=== PATIENT | male | born 1965 | race African-American/Black ===

== ENCOUNTER 2024-04-20 16:05 | Emergency (ER) | payer MEDICAID ==
[~2024-04-20] VITALS: Ht 182.9 cm; Wt 99.7 kg
[~2024-04-20 16:05] MED LIST: ASPI-1406 PO; LOSA50TA41 PO
[2024-04-20 16:15] VITALS: O2SAT 100
[2024-04-20 17:15] LABS: BASOPHILS % 1.2 % (0.0-2.0); EOSINOPHILS % 4.3 % (0.0-5.0); HEMATOCRIT. 42.2 % (42.0-52.0); HEMOGLOBIN. 13.8 g/dL (14.0-18.0); LYMPHOCYTES % 36.2 % (20.0-50.0); MEAN CORPUSCULAR HGB CONC 32.8 g/dL (31.0-37.0); MEAN CORPUSCULAR VOLUME 91.6 fL (80.0-94.0); MEAN PLATELET VOLUME 8.7 fl (7.4-10.4); MONOCYTES % 11.2 % (2.0-8.0); NEUTROPHILS % 47.1 % (40.0-76.0); PLATELET 259 x1000/uL (130-400); RED BLOOD CELL COUNT 4.61 mill/uL (4.7-6.1); RED CELL DISTRIBUTION WIDTH 15.2 % (11.6-14.6); WHITE BLOOD COUNT 5.2 x1000/uL (4.5-11.0)
[2024-04-20 17:18] LABS: CHLORIDE 109 mEq/L (98-107); POTASSIUM 4.4 mEq/L (3.5-5.1); SODIUM 145 mEq/L (136-145)
[2024-04-20 17:19] LABS: CALCIUM 9.6 mg/dL (8.7-10.4); CARBON DIOXIDE 32 mEq/L (21-32)
[2024-04-20 17:23] LABS: CREATININE 0.9 mg/dL (0.6-1.3); GLUCOSE 114 mg/dL (70-105)
[2024-04-20 17:24] LABS: UREA NITROGEN BLOOD 7 mg/dL (9-23)
[2024-04-20 17:26] LABS: TROPONIN I HIGH SENSITIVITY 5 ng/L (3.0-53)
[2024-04-20 19:57] LABS: TROPONIN I HIGH SENSITIVITY 5 ng/L (3.0-53)
[2024-04-21 06:39] VITALS: BP 142/88; PULSE 69; RESP 18; TEMP 37.05852; O2SAT 100
[2024-04-21] MEDS ORDERED: TOPUD PO (08:39)
== END 2024-04-21 09:09 | disposition home or self-care (01) ==
LOC: ER 16:05
DX: R07.89 Other chest pain (principal); F17.200 Nicotine dependence, unspecified, uncomplicated; Z59.00 Homelessness unspecified; Z79.899 Other long term (current) drug therapy
CPT/HCPCS: 80048; 85025; 84484; 36415; 71045; 93005; 99285; Z7610 ×2

== ENCOUNTER 2025-01-07 18:17 | Emergency (ER) | payer MEDICAID ==
[~2025-01-07] VITALS: Ht 177.8 cm; Wt 100.0 kg
[~2025-01-07 18:17] MED LIST changes: +ATOR20TA PO; +DOCU-422 PO; +EMPA10TA PO; +FURO-151 MT; +HYDR50TA PO; +METF-414 MT; +METO-539 PO; +SPIR25TA PO; +TOPUD PO
[2025-01-07 18:21] VITALS: O2SAT 100
[2025-01-07 19:17] LABS: HEMATOCRIT. 43.0 % (42.0-52.0); HEMOGLOBIN. 14.4 g/dL (14.0-18.0); MEAN PLATELET VOLUME 8.4 fl (7.4-10.4); PLATELET 202 x1000/uL (130-400); RED BLOOD CELL COUNT 4.66 mill/uL (4.7-6.1); RED CELL DISTRIBUTION WIDTH 13.8 % (11.6-14.6)
[2025-01-07] MEDS ORDERED: IBUP-2028 MT (19:37)
[2025-01-07 19:38] LABS: CREATININE 1.0 mg/dL (0.6-1.3); ETHANOL BLOOD < 10 mg/dL (<10); TROPONIN I HIGH SENSITIVITY 6 ng/L (3.0-53); UREA NITROGEN BLOOD 8 mg/dL (9-23)
[2025-01-07 19:40] LABS: ASPARTATE AMINOTRANSFERASE 39 IU/L (<34); BILIRUBIN DIRECT 0.4 mg/dL (<=3.0); BILIRUBIN TOTAL 1.0 mg/dL (0.1-1.0); PROTEIN TOTAL 7.2 g/dL (6.0-8.3)
[2025-01-07 19:44] LABS: BASOPHILS % MANUAL 1.0 % (0.0-2.0); EOSINOPHILS % MANUAL 2.0 % (0.0-5.0); LYMPHOCYTES % MANUAL 29.0 % (20.0-50.0); MONOCYTES % MANUAL 17.0 % (2.0-8.0); NEUTROPHILS % MANUAL 51.0 % (45.0-75.0); PLATELET ESTIMATE NORMAL
[2025-01-07 20:20] VITALS: BP 151/90; PULSE 74; RESP 16; TEMP 37; O2SAT 100
== END 2025-01-07 20:21 | disposition home or self-care (01) ==
LOC: ER 18:26
DX: R07.9 Chest pain, unspecified (principal); E11.9 Type 2 diabetes mellitus without complications; I11.0 Hypertensive heart disease with heart failure; I50.9 Heart failure, unspecified; Z79.899 Other long term (current) drug therapy
CPT/HCPCS: 36415; 71045; 80048; 80076; 80320; 83735; 84484; 85025; 93005; 99285; G0480

== ENCOUNTER 2025-01-09 00:42 | Emergency (ER) | payer MEDICAID ==
[~2025-01-09] VITALS: Ht 172.7 cm; Wt 70.0 kg
[~2025-01-09 00:42] MED LIST changes: +IBUP-2028 MT
[2025-01-09 00:48] VITALS: O2SAT 98
[2025-01-09] MEDS: TRAMADOL 50MG TABLET PO ONE (02:35)
[2025-01-09] MEDS: IBUPROFEN 400MG TABLET PO ONE (02:35)
[2025-01-09 02:37] LABS: TROPONIN I HIGH SENSITIVITY 6 ng/L (3.0-53)
[2025-01-09] MEDS ORDERED: TRAM-534 MT (06:28)
[2025-01-09 06:45] VITALS: BP 116/74; PULSE 68; RESP 20; TEMP 37.2; O2SAT 98
== END 2025-01-09 06:49 | disposition home or self-care (01) ==
LOC: ER 00:42
DX: R07.89 Other chest pain (principal); E11.9 Type 2 diabetes mellitus without complications; I11.0 Hypertensive heart disease with heart failure; I50.9 Heart failure, unspecified; F17.200 Nicotine dependence, unspecified, uncomplicated; Z79.899 Other long term (current) drug therapy; Z79.84 Long term (current) use of oral hypoglycemic drugs; Z79.82 Long term (current) use of aspirin
CPT/HCPCS: 36415; 84484; 93005; 99285; A4606

== ENCOUNTER 2025-03-02 07:00 | Inpatient (IN) | payer MEDICAID ==
[~2025-03-02] VITALS: Ht 182.9 cm; Wt 71.7 kg
[~2025-03-02 07:00] MED LIST changes: +TRAM-534 MT
[2025-03-02 07:20] VITALS: O2SAT 98
[2025-03-02] MEDS ORDERED: ATOR10TA69 MT (07:36)
[2025-03-02 08:26] LABS: BASOPHILS % 1.1 % (0.0-2.0); EOSINOPHILS % 3.0 % (0.0-5.0); HEMATOCRIT. 42.9 % (42.0-52.0); HEMOGLOBIN. 14.5 g/dL (14.0-18.0); LYMPHOCYTES % 34.9 % (20.0-50.0); MEAN PLATELET VOLUME 8.1 fl (7.4-10.4); MONOCYTES % 14.3 % (2.0-8.0); NEUTROPHILS % 46.7 % (40.0-76.0); PLATELET 221 x1000/uL (130-400); RED BLOOD CELL COUNT 4.64 mill/uL (4.7-6.1); RED CELL DISTRIBUTION WIDTH 14.3 % (11.6-14.6)
[2025-03-02 08:36] LABS: CREATININE 1.0 mg/dL (0.6-1.3); UREA NITROGEN BLOOD 9 mg/dL (9-23)
[2025-03-02 08:37] LABS: TROPONIN I HIGH SENSITIVITY 5 ng/L (3.0-53)
[2025-03-02] MEDS ORDERED: ENALAPRIL 2.5MG/2ML VIAL 2ML IV ONE (09:30)
[2025-03-02] MEDS: ENALAPRIL 1.25MG/ML VIAL 1ML IV SCH (11:00)
[2025-03-02] MEDS: FUROSEMIDE 40MG/4ML VIAL IVP ONE (11:01)
[2025-03-02] MEDS ORDERED: ONDANSETRON HCL 4MG/2ML INJ IV PRN (12:15)
[2025-03-02] MEDS: AMLODIPINE 10MG TABLET PO SCH (14:14)
[2025-03-02 15:00] VITALS: BP 150/60; PULSE 58; RESP 16; TEMP 36; O2SAT 98
[2025-03-02 16:00] VITALS: BP 151/74; PULSE 59; RESP 16; TEMP 36.2; O2SAT 99
[2025-03-02 16:36] VITALS: BP 148/66; PULSE 54; RESP 18; TEMP 36.2512
[2025-03-02] MEDS: FUROSEMIDE 40MG/4ML VIAL IVP SCH (17:00)
[2025-03-02 20:00] VITALS: BP 124/71; PULSE 61; RESP 21; TEMP 36.1; O2SAT 98
[2025-03-02 21:43] LABS: *AMPHETAMINES SCREEN URINE PRESUMPTIVE POSITIVE (NEGATIVE); *BARBITURATES SCREEN URINE NEGATIVE (NEGATIVE); *BENZODIAZEPINES SCREEN URINE NEGATIVE (NEGATIVE); *COCAINE SCREEN URINE NEGATIVE (NEGATIVE)
[2025-03-02 21:44] LABS: CANNABINOID URINE SCREEN NEGATIVE (NEGATIVE); ECSTASY MDMA SCREEN URINE CONF.TEST INDICATED (NEGATIVE); METHADONE URINE SCREEN NEGATIVE (NEGATIVE); OPIATES URINE SCREEN NEGATIVE (NEGATIVE); PHENCYCLIDINE URINE SCREEN NEGATIVE (NEGATIVE)
[2025-03-03] VITALS: BP 106/63; PULSE 59; RESP 21; TEMP 35.6; O2SAT 98
[2025-03-03 04:00] VITALS: BP 126/85; PULSE 58; RESP 20; TEMP 36.1; O2SAT 100
[2025-03-03 08:00] VITALS: BP 144/82; PULSE 58; RESP 20; TEMP 36.2; O2SAT 100
[2025-03-03] MEDS: ENOXAPARIN 40MG/0.4ML SYR SUBCUT SCH (08:28)
[2025-03-03 12:00] VITALS: BP 133/64; PULSE 61; RESP 19; TEMP 36.3; O2SAT 99
[2025-03-03 13:55] LABS: CLARITY URINE TURBID (CLEAR); COLOR URINE DARK YELLOW (YELLOW); GLUCOSE URINE NEGATIVE (NEGATIVE); KETONES URINE TRACE (NEGATIVE); LEUKOCYTE ESTERASE URINE NEGATIVE (NEGATIVE); NITRITE URINE NEGATIVE (NEGATIVE); OCCULT BLOOD URINE NEGATIVE (NEGATIVE); PH URINE 5.5 (4.5-8.0); PROTEIN URINE TRACE (NEGATIVE); SPECIFIC GRAVITY URINE 1.021 (1.005-1.030); UROBILINOGEN URINE 1.0 E.U./dL (0.2-1.0)
[2025-03-03 15:16] LABS: SQUAMOUS EPITHELIAL CELL URINE 2+ /lpf (RARE/1+)
[2025-03-03 15:18] LABS: BACTERIA URINE NONE SEEN; RBC URINE NONE SEEN /hpf (0-2)
[2025-03-03 15:19] LABS: CALCIUM OXALATE CRYSTALS URINE 2+ /lpf
[2025-03-03 16:00] VITALS: BP 114/70; PULSE 65; RESP 19; TEMP 36.6; O2SAT 99
[2025-03-03 20:00] VITALS: BP 132/79; PULSE 88; RESP 18; TEMP 36.2; O2SAT 98
[2025-03-04] VITALS: BP 120/66; PULSE 71; RESP 18; TEMP 36.2; O2SAT 99
[2025-03-04 04:00] VITALS: BP 110/64; PULSE 60; RESP 19; TEMP 36.1; O2SAT 98
[2025-03-04 08:00] VITALS: BP 110/81; PULSE 61; RESP 17; TEMP 36.1; O2SAT 100
[2025-03-04] MEDS: ACETAMINOPHEN 325MG TABLET PO PRN (08:45)
[2025-03-04] MEDS ORDERED: POTA-205 MT (11:08)
[2025-03-04] MEDS ORDERED: AMLO10TA80 MT (11:08)
[2025-03-04] MEDS ORDERED: FURO-151 MT (11:08)
[2025-03-04 11:21] LABS: TROPONIN I HIGH SENSITIVITY < 4 ng/L (3.0-53)
[2025-03-04 12:00] VITALS: BP 122/80; PULSE 80; RESP 16; TEMP 36.1; O2SAT 100
[2025-03-04 16:00] VITALS: BP 124/80; PULSE 76; RESP 17; TEMP 36.2; O2SAT 100
[2025-03-04 17:08] VITALS: BP 135/84; PULSE 71; RESP 17; TEMP 97.1
== END 2025-03-04 18:30 | DRG 194 ==
LOC: ER 07:00 → 6WST 09:24 → EDBEDREQTM 09:36 → EDBEDREQ 09:36
PROVIDERS: ADMIT Internal Medicine; ATTEND Internal Medicine
DX: I11.0 Hypertensive heart disease with heart failure (principal); D72.819 Decreased white blood cell count, unspecified; E11.9 Type 2 diabetes mellitus without complications; E78.00 Pure hypercholesterolemia, unspecified; F15.90 Other stimulant use, unspecified, uncomplicated; I50.43 Acute on chronic combined systolic (congestive) and diastolic (congestive) heart failure; F17.210 Nicotine dependence, cigarettes, uncomplicated; Z79.899 Other long term (current) drug therapy
CPT/HCPCS: 36415; 71045; 80048; 80305; 81003; 83880; 84484; 85025; 93005; 93306; 99285; J1650; J1938; J3490

== ENCOUNTER 2025-03-30 18:41 | Emergency (ER) | payer MEDICAID ==
[~2025-03-30] VITALS: Ht 175.3 cm; Wt 91.0 kg
[~2025-03-30 18:41] MED LIST changes: +AMLO10TA80 MT; +ATOR10TA69 MT; +POTA-205 MT
[2025-03-30 18:52] VITALS: TEMP 36.8; O2SAT 95
[2025-03-30 19:35] LABS: CREATININE 0.9 mg/dL (0.6-1.3); UREA NITROGEN BLOOD < 5 mg/dL (9-23)
[2025-03-30 19:37] LABS: ASPARTATE AMINOTRANSFERASE 16 IU/L (<34); BILIRUBIN DIRECT 0.4 mg/dL (<=3.0); BILIRUBIN TOTAL 1.0 mg/dL (0.1-1.0); PROTEIN TOTAL 7.6 g/dL (6.0-8.3); TROPONIN I HIGH SENSITIVITY 4 ng/L (3.0-53)
[2025-03-30 20:58] LABS: BASOPHILS % 1.0 % (0.0-2.0); EOSINOPHILS % 0.9 % (0.0-5.0); HEMATOCRIT. 45.0 % (42.0-52.0); HEMOGLOBIN. 14.9 g/dL (14.0-18.0); LYMPHOCYTES % 33.8 % (20.0-50.0); MEAN PLATELET VOLUME 8.1 fl (7.4-10.4); MONOCYTES % 14.9 % (2.0-8.0); NEUTROPHILS % 49.4 % (40.0-76.0); PLATELET 214 x1000/uL (130-400); RED BLOOD CELL COUNT 4.88 mill/uL (4.7-6.1); RED CELL DISTRIBUTION WIDTH 14.2 % (11.6-14.6)
[2025-03-30] MEDS ORDERED: IBUP-1455 MT (21:07)
[2025-03-30 21:14] LABS: TROPONIN I HIGH SENSITIVITY 5 ng/L (3.0-53)
[2025-03-30 21:30] VITALS: BP 140/85; PULSE 82; RESP 18; O2SAT 97
== END 2025-03-30 21:33 | disposition home or self-care (01) ==
LOC: ER 18:41
DX: R07.9 Chest pain, unspecified (principal); I50.9 Heart failure, unspecified; E11.9 Type 2 diabetes mellitus without complications; I11.0 Hypertensive heart disease with heart failure; E78.00 Pure hypercholesterolemia, unspecified; Z79.899 Other long term (current) drug therapy
CPT/HCPCS: 36415; 71045; 80048; 80076; 80320; 83880; 84484; 85025; 93005; 99285; G0480